=== PATIENT | female | born 1990 | race Caucasian/White ===

== ENCOUNTER 2017-05-01 10:03 | Inpatient (IN) | payer MEDICAID ==
[2017-05-01] VITALS (9 sets, daily range): BP systolic 109–142; BP diastolic 53–81; PULSE 78–91; RESP 16–20; TEMP 97.6–98.8; O2SAT 96–99
[~2017-05-01 10:03] MED LIST: YAZ3TAB PO
[2017-05-01] MEDS ORDERED: LACTATED RINGER'S 1000 ML INJ 1,000 ML IV ONE (10:39)
--- NOTE | 2017-05-01 10:49 | HHI.HP ---
HPI Chief Complaint repeat cd Travel History International Travel<30 Days: No Contact w/Intl Traveler<30Days: No Known Affected Area: No History of Present Illness HPI Pt is a with iup at 39w1d here for repeat cd. She had first cd for failure of descent, 8 lb 7 oz. She started pnc at 13 weeks, uncomplicated . Wt gain of 30 pounds. Growth u/s performed at 33w3d as she was measuring s>d, EFW 83 % with AC over 95 %ile (5 lb 12 oz). She endorses good fm, irreg ctx, no lof or vb. Weeks Gestation: 39 Para: 1 : 2 History Past Medical History Medical History: Denies Significant Hx Obstetric History Obstetric History G1 CD FT Past Surgical History Narrative Surgical CD x1 lipoma removal Family History Family History: Negative Social History Alcohol Use: No Tobacco Use: No Substance Abuse: No Allergies-Medications (Allergen,Severity, Reaction): Coded Allergies: No Known Allergies (Verified Allergy, Unknown, 05/01/17) Home Meds Active Scripts Drospirenone-Ethinyl Estradiol (Iris) 1 Tab Tab, 1 TAB PO DAILY, #3 PACK 3 Refills Prov:Jayme Allred MD R3 01/15/15 Review of Systems General / Constitutional: No: Fever, Weight Gain, Chills, Other Eyes: No: Diploplia, Blurred Vision, Visual changes, Pain, Photophobia HENT: No: Headaches, Vertigo, Lightheadedness Cardiovascular: No: Irregular Rhythm, Chest Pain or Discomfort, Palpitations, Tachycardia, Syncope, Varicosities, Edema, Cyanosis Respiratory: No: Cough, Short of Breath, Other Gastrointestinal: No: Nausea, Vomiting, Diarrhea Genitourinary: No: Decreased Urinary Output, Oliguria Musculoskeletal: No: Limited ROM, Weakness, Cramping, Edema, Pain Skin: No Rash, No Itching, No Dryness, No Lumps, No Change in Pigmentation, No Change in Nails, No Alopecia, No Lesions Neurologic: No: Weakness, Dizziness, Syncope, Focal Abnormalities, Coordination Problem, Headache, Slurred Speech, Seizures Psychiatric: No: Depression, Suicidal Ideations, Homicidal Ideation Endocrine: No: Heat Intolerance, Cold Intolerance, Polydipsia, Polyuria, Other Physical Exam Narrative GENERAL: Well-nourished, well-developed patient. SKIN: Warm and dry. HEAD: Normocephalic and atraumatic. EYES: No scleral icterus. No injection or drainage. ENT: No nasal drainage noted. Mucous membranes pink. Airway patent. NECK: Supple, trachea midline. No JVD. CARDIOVASCULAR: Regular rate and rhythm without murmurs, gallops, or rubs. RESPIRATORY: Breath sounds equal bilaterally. No accessory muscle use. ABDOMEN/GI: Abdomen soft, non-tender, bowel sounds present, no rebound, no guarding Gravid to [-] weeks size Fundal Height: [-] GENITOURINARY: External Genitalia: defer, prior /, narrow pelvis Presentation:ceph Membranes: [intact Uterine Contractions: [-] FHT's: Category:I EXTREMITIES: No cyanosis or edema. BACK: Nontender without obvious deformity. No CVA tenderness. NEUROLOGICAL: Awake and alert. Motor and sensory grossly within normal limits. Five out of 5 muscle strength in all muscle groups. Normal speech. Caprini VTE Risk Assessment Caprini VTE Risk Assessment: No/Low Risk (score <= 1) Caprini Risk Assessment Model Point Value = 1 Point Value = 2 Point Value = 3 Point Value = 5 Age 41-60 Minor surgery BMI > 25 kg/m2 Swollen legs Varicose veins or History of unexplained or recurrent spontaneous Oral contraceptives or hormone replacement Sepsis (< 1 month) Serious lung disease, including pneumonia (< 1 month) Abnormal pulmonary function Acute myocardial infarction Congestive heart failure (< 1 month) History of inflammatory bowel disease Medical patient at bed rest Age 61-74 Arthroscopic surgery Major open surgery (> 45 min) Laparoscopic surgery (> 45 min) Malignancy Confined to bed (> 72 hours) Immobilizing plaster cast Central venous access Age >= 75 History of VTE Family history of VTE Factor V Leiden Prothrombin [id number] Lupus anticoagulant Anticardiolipin antibodies Elevated serum homocysteine Heparin-induced thrombocytopenia Other congenital or acquired thrombophilia Stroke (< 1 month) Elective arthroplasty Hip, pelvis, or leg fracture Acute spinal cord injury (< 1 month) Prophylaxis Regimen Total Risk Factor Score Risk Level Prophylaxis Regimen 0-1 Low Early ambulation 2 Moderate Order ONE of the following: *Sequential Compression Device (SCD) *Heparin 5000 units SQ BID 3-4 Higher Order ONE of the following medications: *Heparin 5000 units SQ TID *Enoxaparin/Lovenox 40 mg SQ daily (WT < 150 kg, CrCl > 30 mL/min) *Enoxaparin/Lovenox 30 mg SQ daily (WT < 150 kg, CrCl > 10-29 mL/min) *Enoxaparin/Lovenox 30 mg SQ BID (WT < 150 kg, CrCl > 30 mL/min) AND/OR *Sequential Compression Device (SCD) 5 or more Highest Order ONE of the following medications: *Heparin 5000 units SQ TID (Preferred with Epidurals) *Enoxaparin/Lovenox 40 mg SQ daily (WT < 150 kg, CrCl > 30 mL/min) *Enoxaparin/Lovenox 30 mg SQ daily (WT < 150 kg, CrCl > 10-29 mL/min) *Enoxaparin/Lovenox 30 mg SQ BID (WT < 150 kg, CrCl > 30 mL/min) AND *Sequential Compression Device (SCD) Data Data Vital Signs Reviewed: Yes Orders Orders Admit To Inpatient (05/01/17 ) Vital Signs (Adult) .ON ADMISSION (05/01/17 10:39) Activity Oob Ad Angelica (05/01/17 10:39) Heart (05/01/17 10:39) Urinary Catheter Management LIZ.Q8H (05/01/17 10:39) ^ Preps (05/01/17 10:39) Scd / Wilfrido / Foot Pump LIZ.QSHIFT (05/01/17 10:39) ^ Ultrasound For Locatio (05/01/17 10:39) Diet Npo (05/01/17 Lunch) Lactated Ringer's 1000 Ml Inj (Lr 1000 M (05/01/17 10:39) Lactated Ringer's 1000 Ml Inj (Lr 1000 M (05/01/17 11:09) Cefazolin 2 Gm Premix (Ancef 2 Gm Premix (05/01/17 11:45) Group B Strep: Negative Assessment/Plan Problem List: (1) History of low transverse section ICD Codes: Z98.891 - History of uterine scar from previous surgery Assessment and Plan 26 yo with iup at 39 w 1d scheduled for elective repeat cd, likely cpd. Consents signed on chart. GBS neg Fetus female, LGA Discharge Planning POD 2-3 Cece Scherer MD May 01, 2017 10:48
[2017-05-01 11:07] LABS: AUTOMATED NEUTROPHIL # 8.4 TH/MM3 (1.8-7.7); BASOPHIL % 0.2 % (0.0-2.0); EOSINOPHIL # 0.1 TH/MM3 (0-0.4); EOSINOPHIL % 0.7 % (0.0-4.0); HEMATOCRIT 37.3 % (35.0-46.0); HEMO FLAGS DIFF FINAL; LYMPH % 18.2 % (9.0-44.0); MEAN CELL VOLUME 86.8 FL (80.0-100.0); MEAN CORPUSCULAR HEMOGLOBIN 29.9 PG (27.0-34.0); MEAN CORPUSCULAR HGB CONC 34.5 % (32.0-36.0); MONO % 4.8 % (0.0-8.0); NEUT % 76.1 % (16.0-70.0); PLATELET COUNT 144 TH/MM3 (150-450); RED CELL DISTRIBUTION WIDTH 14.8 % (11.6-17.2)
[2017-05-01] MEDS ORDERED: LACTATED RINGER'S 1000 ML INJ 1,000 ML IV SCH ×2 (11:09→18:22)
[2017-05-01] MEDS: ceFAZolin 2 GM PREMIX 50 ML IV SCH ×2 (11:42→13:50)
[2017-05-01] MEDS ORDERED: MORPHINE SULFATE PF 5 MG/10 ML VIAL ONE (11:45)
[2017-05-01] MEDS ORDERED: ACETAMINOPHEN 1000 MG/100 ML 100 ML IV ONE ×2 (11:45→13:30)
[2017-05-01] MEDS ORDERED: EPIDURAL-DIPHENHYDRAMINE HCL 50 MG CAP PO PRN (11:58)
[2017-05-01] MEDS ORDERED: EPIDURAL-NO SYSTEMIC NARCOTICS PRN (11:58)
[2017-05-01] MEDS ORDERED: EPIDURAL-DO NOT ADMINISTER ANTICOAGULANTS PRN (11:58)
[2017-05-01] MEDS ORDERED: EPIDURAL-DIPHENHYDRAMINE HCL 50 MG/ML VIAL IV PUSH PRN (11:58)
[2017-05-01] MEDS ORDERED: EPIDURAL-NALOXONE HCL 0.4 MG/ML AMP IV PUSH PRN (11:58)
[2017-05-01] MEDS ORDERED: CITRIC ACID-SODIUM CITRATE LIQ 30 ML UDC PO SCH (12:15)
[2017-05-01 12:23] LABS: BACTERIA, URINE OCC /hpf; BLOOD, URINE NEG (NEG); COMMENT (UR) CULT NOT INDICATED; CULTURE IF INDICATED CULT NOT INDICATED; GLUCOSE,URINE NEG (NEG); KETONE, URINE NEG (NEG); MUCUS URINE FEW /lpf (OCC); NITRITE,URINE NEG (NEG); SQUAMOUS EPITHELIAL CELL URINE 5 /hpf (0-5); URINE COLOR YELLOW (YELLW/STRAW)
[2017-05-01] MEDS ORDERED: KETOROLAC TROMETHAMINE 60 MG/2 ML (IM) VIAL IM ONE ×2 (13:05→13:55)
--- NOTE | 2017-05-01 13:26 | PD.OB.DELI ---
Procedure Note Section Procedure Pre Op Diagnosis: (1) History of low transverse section Post Op Diagnosis: (1) History of low transverse section Performed by Cece Scherer Procedure: Repeat Low Transverse Sec Indication for delivery: Desired elective repeat Previous condition: None Informed consent obtained: For anesthesia, For procedure Confirmed correct: Patient, Procedure, Site, Time-out taken Anesthesia: Spinal Medication prior to procedure: As documented in eMAR Monitoring during procedure: Blood pressure monitoring, Pulse oximetry Urinary catheter: Inserted using sterile technique, To dependent drainage, ml urine output (100) Sterile preparation: With 2% chlorexidine (Hibiclens) Position: Supine with wedge to right side, Supine with safety belt applied Operative Features Skin Incision: Pfannenstiel Uterine Incision: Low transverse w/knife / scissors Membranes Ruptured: Amount of liquid (poly), Appearance of fluid (cl) Presentation: Other (OT) Delivery date: May 01, 2017 Delivery time: 12:25 Delivery of : Uneventful : Female One Minute : 9 Five Minute : 9 Weight: 3870g Status of : Viable, Cord blood Medications: Antibiotics, Oxytocin Estimated blood loss: 500ml Procedure tolerated: Well Maternal Condition: Stable Condition: Stable Procedure in detail dictation Cece Scherer MD May 01, 2017 13:25
[2017-05-01] MEDS ORDERED: OXYTOCIN 30 UNITS-500ML PREMIX 500 ML IV ONE (13:30)
[2017-05-01] MEDS ORDERED: ONDANSETRON HCL 4 MG/2 ML VIAL IV PUSH PRN (13:30)
[2017-05-01] MEDS ORDERED: ACETAMINOPHEN 325 MG TAB PO PRN (13:30)
[2017-05-01] MEDS ORDERED: SIMETHICONE 80 MG CHEWABLE TAB PO PRN (13:30)
[2017-05-01] MEDS ORDERED: SODIUM CHLORIDE 0.9% FLUSH 10 ML FLUSH IV FLUSH PRN (13:30)
[2017-05-01] MEDS ORDERED: SODIUM CHLORIDE 0.9% FLUSH 10 ML FLUSH IV FLUSH SCH (13:30)
[2017-05-01] MEDS ORDERED: KETOROLAC TROMETHAMINE 30 MG/ML (IVP) VIAL ONE (13:54)
[2017-05-01] MEDS ORDERED: OXYTOCIN 30 UNITS-500ML PREMIX 500 ML ONE (14:02)
[2017-05-01] MEDS ORDERED: ONDANSETRON HCL 4 MG/2 ML VIAL ONE (14:07)
[2017-05-01] MEDS ORDERED: PROMETHAZINE INJ 25 MG/ML VIAL IM ONE (15:45)
[2017-05-01] MEDS ORDERED: ZOLPIDEM TARTRATE 5 MG TAB PO PRN (21:00)
[2017-05-01] MEDS ORDERED: OXYTOCIN 30 UNITS-500ML PREMIX 500 ML IV PRN (23:30)
[2017-05-02] VITALS: BP 124/71; PULSE 68; RESP 18; TEMP 98.7; O2SAT 99
[2017-05-02 04:00] VITALS: BP 121/75; PULSE 77; RESP 16; TEMP 98.2; O2SAT 98
[2017-05-02] MEDS: IBUPROFEN 600 MG TAB PO PRN ×3 (05:03→19:40)
[2017-05-02 06:07] LABS: AUTOMATED NEUTROPHIL # 10.3 TH/MM3 (1.8-7.7); BASOPHIL % 0.2 % (0.0-2.0); EOSINOPHIL # 0.1 TH/MM3 (0-0.4); EOSINOPHIL % 0.4 % (0.0-4.0); HEMO FLAGS DIFF FINAL; LYMPH % 15.4 % (9.0-44.0); LYMPHOCYTE # 2.1 TH/MM3 (1.0-4.8); MEAN CELL VOLUME 89.4 FL (80.0-100.0); MEAN CORPUSCULAR HEMOGLOBIN 29.9 PG (27.0-34.0); MEAN CORPUSCULAR HGB CONC 33.4 % (32.0-36.0); MONO % 7.1 % (0.0-8.0); NEUT % 76.9 % (16.0-70.0); PLATELET COUNT 135 TH/MM3 (150-450); RED BLOOD COUNT 3.92 MIL/MM3 (4.00-5.30); RED CELL DISTRIBUTION WIDTH 14.8 % (11.6-17.2); WHITE BLOOD COUNT 13.4 TH/MM3 (4.0-11.0)
[2017-05-02 08:20] VITALS: BP 117/69; PULSE 81; RESP 14; TEMP 97.6
[2017-05-02] MEDS: oxyCODONE/ACETAMINOPHEN 5 MG/325 MG TAB PO PRN ×5 (09:28→19:40)
[2017-05-02] MEDS: DOCUSATE SODIUM 50 MG/SENNA 8.6 MG TAB PO PRN (09:29)
--- NOTE | 2017-05-02 13:37 | HHI.OB ---
Subjective Post Operative Day: 1 Remarks POD#1, repeat LTCS, stable Objective Vitals/I&O Vital Signs Date Time Temp Pulse Resp B/P (MAP) Pulse Ox O2 Delivery O2 Flow Rate FiO2 05/02/17 08:20 97.6 81 14 117/69 (85) 05/02/17 04:00 98.2 77 16 121/75 (90) 98 05/02/17 00:00 98.7 68 18 124/71 (88) 99 05/01/17 20:00 97.6 80 20 128/69 (88) 96 05/01/17 14:45 84 16 142/80 (100) 96 05/01/17 14:14 98.8 05/01/17 14:14 78 20 120/68 (85) 97 05/01/17 14:00 87 20 116/81 (93) 99 05/01/17 13:45 86 20 109/78 (88) Result Diagram: 05/02/17 0508 Objective Remarks GENERAL: Well-nourished, well-developed patient. CARDIOVASCULAR: Regular rate and rhythm without murmurs, gallops, or rubs. RESPIRATORY: Breath sounds equal bilaterally. No accessory muscle use. ABDOMEN/GI: Abdomen soft, non-tender, bowel sounds present. Incision: Clean, dry and intact. Fundus: Firm, non-tender at umbilicus. GENITOURINARY: Light to moderate bleeding. EXTREMITIES: No cyanosis or edema, non-tender, without signs of DVT. Medications and IVs Current Medications Medications (Trade) Dose Ordered Sig/Pato Route Start Time Stop Time Status Last Admin Cefazolin Sodium/ Dextrose 50 ml @ 100 mls/hr SWEATBAND DECORATING MACHINE OPERATOR IV 05/01/17 11:45 05/05/17 11:44 05/01/17 13:50 (Bicitra Liq) 30 ml SWEATBAND DECORATING MACHINE OPERATOR PO 05/01/17 12:15 05/05/17 12:14 05/01/17 11:43 Lactated Ringer's 1,000 ml @ 100 mls/hr Q10H IV 05/01/17 18:22 05/02/17 14:21 05/01/17 20:00 Oxytocin 500 ml @ 100 mls/hr UNSCH X1 PRN IV 05/01/17 23:30 05/02/17 23:29 (NS Flush) 2 ml BID IV FLUSH 05/01/17 13:30 (NS Flush) 2 ml UNSCH PRN IV FLUSH 05/01/17 13:30 (Mylicon Chew) 80 mg QID PRN PO 05/01/17 13:30 (Tylenol) 650 mg Q6H PRN PO 05/01/17 13:30 (Motrin) 600 mg Q6H PRN PO 05/01/17 13:30 05/02/17 13:28 (Percocet 5-325 Mg) 1 tab Q4H PRN PO 05/01/17 13:30 05/02/17 13:29 (Percocet 5-325 Mg) 2 tab Q4H PRN PO 05/01/17 13:30 (Flores-Colace) 2 tab Q12H PRN PO 05/01/17 13:30 05/02/17 09:29 (Ambien) 5 mg HS PRN PO 05/01/17 21:00 (M-M-R Ii Inj) 0.5 ml ONCE ONCE SQ 05/02/17 16:00 05/02/17 16:01 (Boostrix Inj) 0.5 ml ONCE ONCE IM 05/02/17 16:00 05/02/17 16:01 (Zofran Inj) 4 mg Q6H PRN IV PUSH 05/01/17 13:30 Assessment/Plan Problem List: (1) History of low transverse section ICD Codes: Z98.891 - History of uterine scar from previous surgery Assessment and Plan 26 yo S/P R-CD GBS neg Fetus female, LGA STABLE Discharge Planning POD 2-3 Attending Attestation SEEN BY Sandeep García MD May 02, 2017 13:37
--- NOTE | 2017-05-02 14:37 | MP ---
cc: CECE SCHERER MD DATE OF SURGERY 05/01/2017 PREOPERATIVE DIAGNOSES Intrauterine at 39 weeks. History of delivery. POSTOPERATIVE DIAGNOSIS Intrauterine at 39 weeks. History of delivery. PROCEDURE PERFORMED Repeat low transverse delivery. INDICATION The patient is a 26-year-old -0-0-1 with intrauterine at 39 weeks and 1 day who desired repeat delivery. Given the fetus was large for gestational age and a prior delivery for her arrest of descent, she was counseled alternatives or . She desired repeat delivery. Consent was signed on the chart. SURGEON Cece Campos MD B[employer] [place] staff ANESTHESIA Spinal. IV FLUIDS 1300 mL of lactated Ringer's. ESTIMATED BLOOD LOSS 500 mL. URINE OUTPUT 100 mL. PREOPERATIVE ANTIBIOTICS Ancef 2 grams IV given pre-incision. DVT PROPHYLAXIS SCDs to bilateral lower extremities. COUNTS Correct x 2. SPECIMEN Cord blood. INTRAOPERATIVE FINDIN. Viable female with Apgars of 9 and 9 at one minute and five minutes respectively. weight 3870 grams. 2. Presentation was low transverse. 3. Copious amounts of clear amniotic fluid. 4. Placenta and membranes intact. Three-vessel cord. 5. Uterus, tubes, ovaries were within normal limits. There were intraabdominal adhesions of the subcutaneous tissue to the fascia and the fascia to the rectus muscle was noted. PROCEDURE IN DETAIL After reviewing informed consent, the patient was taken to the operating room where spinal anesthesia was administered without complication. A Lake was placed in sterile fashion. SCDs were placed on the bilateral lower extremities. She was placed in left lateral tilt position. The abdomen was prepped and draped in normal sterile fashion. After adequate anesthesia was confirmed, a Pfannenstiel skin incision was made with a scalpel in her previous incision site. The incision was carried down through the underlying layer of the fascia where there was noted to be scar tissue noted. There was scarring of the fascia. The fascia was incised in the midline with the Bovie. The incision was extended bilaterally with Martinez scissors. The superior edge of the fascia was grasped with Prasad clamps. The rectus muscle was from the fascia with a combination of blunt dissection and with the Bovie. This was grasped at the inferior edge. There was a defect in the flap was noted. Attention was then turned to this defect and dissection . There were no adhesions. The rectus muscle was then . The peritoneum was entered bluntly. was performed before extending the incision bluntly. Bladder blade was inserted. Her uterine fundus was noted to be thin and was ballottable on palpation. A low transverse incision was made with a scalpel. The incision was extended with scissors. Clear amniotic fluid noted. The head was grasped and bought to the level of the hysterotomy. Fundal pressure was then used to deliver. The mouth and nose was bulb suctioned. Cord clamping was performed, the baby handed off to the awaiting team. Cord blood was collected. The placenta was delivered with gentle cord traction and uterine massage. The uterus was exteriorized, cleared of all clots and debris with moistened laparotomy sponge. The uterine incision was repaired with #1 chromic in a running locked fashion, followed by an imbricating layer. hemostasis. The hysterotomy was inspected and noted to be hemostatic. The uterus was then replaced in the abdomen. The anterior cul-de-sac was irrigated and suctioned. Good hemostasis was noted. The peritoneum was closed with 2-0 chromic in a running fashion for corners to midline. The fascia was then closed with #1 Vicryl in a running fashion. The subcutaneous tissue was irrigated with warm, sterile water and hemostasis obtained with a Bovie. The skin was closed with interrupted 2-0 chromic. The skin was closed with 3-0 Monocryl. Steri-Strips applied followed by sterile dressing. The patient tolerated the procedure well. She was sent to PACU in stable condition. Cece Scherer MD PE/VARUN /8:34 PM /2:14 PM
[2017-05-02] MEDS ORDERED: DIPHTH/TETANUS/ACEL PERTUSSIS (BOOSTER) 0.5 ML VIAL/PFS IM ONE (16:00)
[2017-05-02] MEDS ORDERED: MEASLES, MUMPS, RUBELLA VACCINE 0.5 ML VIAL SQ ONE (16:00)
[2017-05-02 19:30] VITALS: BP 126/77; PULSE 81; RESP 16; TEMP 97.8
[2017-05-03] MEDS: IBUPROFEN 600 MG TAB PO PRN ×3 (01:51→15:11)
[2017-05-03] MEDS: oxyCODONE/ACETAMINOPHEN 5 MG/325 MG TAB PO PRN ×3 (01:51→15:12)
[2017-05-03 08:00] VITALS: BP 135/85; PULSE 81; RESP 16; TEMP 97.9; O2SAT 98
--- NOTE | 2017-05-03 11:45 | HHI.OB ---
Subjective Post Operative Day: 2 Remarks mom and baby doing well would like to be discharge to home with toddler and good support Objective Vitals/I&O Vital Signs Date Time Temp Pulse Resp B/P (MAP) Pulse Ox O2 Delivery O2 Flow Rate FiO2 05/03/17 08:00 97.9 81 16 135/85 (102) 98 05/02/17 19:30 97.8 81 16 126/77 (93) Result Diagram: 05/02/17 0507 Objective Remarks GENERAL: Well-nourished, well-developed patient. CARDIOVASCULAR: Regular rate and rhythm without murmurs, gallops, or rubs. RESPIRATORY: Breath sounds equal bilaterally. No accessory muscle use. ABDOMEN/GI: Abdomen soft, non-tender, bowel sounds present. Incision: Clean, dry and intact. Fundus: Firm, non-tender at umbilicus. GENITOURINARY: Light to moderate bleeding. EXTREMITIES: No cyanosis or edema, non-tender, without signs of DVT. Medications and IVs Current Medications Medications (Trade) Dose Ordered Sig/Pato Route Start Time Stop Time Status Last Admin Cefazolin Sodium/ Dextrose 50 ml @ 100 mls/hr RESIDENCE COUNSELOR IV 05/01/17 11:45 05/05/17 11:44 05/01/17 13:50 (Bicitra Liq) 30 ml RESIDENCE COUNSELOR PO 05/01/17 12:15 05/05/17 12:14 05/01/17 11:43 (NS Flush) 2 ml BID IV FLUSH 05/01/17 13:30 (NS Flush) 2 ml UNSCH PRN IV FLUSH 05/01/17 13:30 (Mylicon Chew) 80 mg QID PRN PO 05/01/17 13:30 (Tylenol) 650 mg Q6H PRN PO 05/01/17 13:30 (Motrin) 600 mg Q6H PRN PO 05/01/17 13:30 05/03/17 09:03 (Percocet 5-325 Mg) 1 tab Q4H PRN PO 05/01/17 13:30 05/03/17 01:51 (Percocet 5-325 Mg) 2 tab Q4H PRN PO 05/01/17 13:30 05/03/17 09:07 (Flores-Colace) 2 tab Q12H PRN PO 05/01/17 13:30 05/02/17 09:29 (Ambien) 5 mg HS PRN PO 05/01/17 21:00 (Zofran Inj) 4 mg Q6H PRN IV PUSH 05/01/17 13:30 Assessment/Plan Problem List: (1) History of low transverse section ICD Codes: Z98.891 - History of uterine scar from previous surgery Assessment and Plan 26 yo S/P R-CD GBS neg Fetus female, LGA STABLE Discharge Planning POD 2-3 05/03/17 Ready for discharge Leonor Hartmann MD May 03, 2017 11:45
--- NOTE | 2017-05-03 11:48 | HHI.DCPOC ---
Discharge Care Plan Report Symptoms to Your Doctor -Temperature above 100.5 degrees -Redness, of incision or excessive or foul smelling drainage -Unusual pain or calf pain -Increased vaginal bleeding -Painful or difficulty urinating -Feelings of extreme sadness or anxiety after 2 weeks Goals to Promote Your Health * To prevent worsening of your condition and complications * To maintain your health at the optimal level Directions to Meet Your Goals Take your medications as prescribed Follow your dietary instruction Follow activity as directed Ensure plenty of rest for recovery Drink fluids for hydration Keep your appointments as scheduled Take your immunizations and boosters as scheduled If your symptoms worsen call your PCP, if no PCP go to Urgent Care Center or Emergency Room Smoking is Dangerous to Your Health. Avoid second hand smoke Call the 24-hour crisis hotline for domestic abuse at Leonor Hartmann MD May 03, 2017 11:48
[2017-05-03] MEDS ORDERED: OXYC1TAB63 PO (12:19)
[2017-05-03] MEDS: DOCUSATE SODIUM 50 MG/SENNA 8.6 MG TAB PO PRN (13:20)
== END 2017-05-03 16:00 | disposition home or self-care (01) | DRG 766 ==
LOC: H2EB 10:03 → H1EA 14:33
PROVIDERS: ADMIT Obstetrics & Gynecology; ATTEND Obstetrics & Gynecology
PROC: 10D00Z1 Extraction of Products of Conception, Low, Open Approach (ICD-10-PCS; principal; 2017-05-01)
DX: O34.211 Maternal care for low transverse scar from previous cesarean delivery (principal); O36.63X0 Maternal care for excessive fetal growth, third trimester, not applicable or unspecified; Z3A.39 39 weeks gestation of pregnancy; Z37.0 Single live birth
CPT/HCPCS: 59025; 80307; 81001; 85025; 86850; 86900; 86901; 90715; J0131; J0690; J1885; J2274; J2405; J2590; J3010; J7120